=== PATIENT | male | born 1975 | race Caucasian/White ===

== ENCOUNTER 2019-09-06 08:08 | Outpatient (CLI) | payer OTHER, SELFPAY ==
[2019-09-06 09:44] LABS: Alanine Aminotransferase 81 U/L (16-63); Albumin Level 4.1 g/dL (3.4-5.0); Alkaline Phosphatase 105 U/L (46-116); Anion Gap 16.4 mmol/L (7-16); Aspartate Amino Transferase 37 U/L (15-37); Bilirubin,Total 0.5 mg/dL (0.00-1.00); Blood Urea Nitrogen 17 mg/dL (7-18); Calcium 8.7 mg/dL (8.5-10.1); Carbon Dioxide 25 mmol/L (21-32); Chloride 105 mmol/L (98-108); Cholesterol 235 mg/dL (0-200); Estimated Glomerular Filt Rate > 60; Glucose 108 mg/dL (70-99); HDL Direct 28 mg/dL (40-60); Osmolality Calculated 296 mOsm/kg (285-295); Potassium 4.4 mmol/L (3.5-5.1); Sodium 142 mmol/L (136-145); Total Protein 7.5 g/dL (6.4-8.2)
[2019-09-06 09:57] LABS: LDL Cholesterol Calculated 100 mg/dL (<130); LDL Cholesterol Direct 101 mg/dL (0-130); Triglycerides 533 mg/dL (0-150)
== END 2019-09-06 08:09 | disposition home or self-care (01) ==
LOC: CHSLAB 08:13
PROVIDERS: Visit Provider Internal Medicine Cardiovascular Disease
DX: E78.5 Hyperlipidemia, unspecified (principal)
CPT/HCPCS: 36415; 80053; 80061; 83721

== ENCOUNTER 2020-10-21 14:06 | Outpatient (CLI) | payer OTHER, SELFPAY ==
[2020-10-21 14:17] LABS: Hematocrit 44.4 % (40.0-54.0); Hemoglobin 15.7 g/dL (14.0-18.0); Mean Corpuscular HGB Conc 35.4 g/dL (32.0-36.0); Mean Corpuscular Hemoglobin 29.6 pg (27.0-31.0); Mean Corpuscular Volume 83.8 fL (78.0-102.0); Mean Platelet Volume 8.9 fl (8.7-11.0); Platelet Count Result 176 K/mm3 (150-420); Red Cell Distribution Width 11.9 % (11.6-14.4); White Blood Count 4.5 K/mm3 (4.8-10.8)
[2020-10-21 15:35] LABS: Alanine Aminotransferase 96 U/L (16-63); Albumin Level 4.2 g/dL (3.4-5.0); Alkaline Phosphatase 114 U/L (46-116); Anion Gap 10 mmol/L (8-16); Aspartate Amino Transferase 42 U/L (15-37); Bilirubin,Total 0.8 mg/dL (0.00-1.00); Blood Urea Nitrogen 16 mg/dL (7-18); Calcium 9.1 mg/dL (8.5-10.1); Carbon Dioxide 28 mmol/L (21-32); Chloride 100 mmol/L (98-108); Cholesterol 224 mg/dL (0-200); Estimated Glomerular Filt Rate > 60; Glucose 88 mg/dL (70-99); HDL Direct 31 mg/dL (40-60); LDL Cholesterol Calculated 109 mg/dL (<130); Osmolality Calculated 286 mOsm/kg (285-295); Potassium 4.1 mmol/L (3.5-5.1); Sodium 138 mmol/L (136-145); Total Protein 7.6 g/dL (6.4-8.2); Triglycerides 422 mg/dL (0-150)
[2020-10-21 15:40] LABS: LDL Cholesterol Direct 116 mg/dL (0-130)
[2020-10-23 20:30] LABS: H pylori, Urea Breath NOT DETECTED (NOT DETECTED)
== END 2020-10-21 14:07 | disposition home or self-care (01) ==
PROVIDERS: PCP Family Medicine; Visit Provider Family Medicine
DX: J45.909 Unspecified asthma, uncomplicated (principal); K21.9 Gastro-esophageal reflux disease without esophagitis
CPT/HCPCS: 36415; 80053; 80061; 83013; 83721; 85027

== ENCOUNTER 2021-02-04 00:07 | Emergency (ER) | payer OTHER, SELFPAY ==
--- NOTE | ~2021-02-04 | XR_ITS ---
EXAMINATION: XR hip LT 2V w AP pelvis DATE: 02/04/2021 03:59 INDICATION: Pelvis injury. TECHNIQUE: An anteroposterior view of the pelvis and 3 views of left hip were obtained. COMPARISON: None. FINDINGS: Bone alignment is normal. No fracture. There is mild osteoarthritis of the hips. Surgical c lips and miriam overlie the pelvis. IMPRESSION: 1. Mild osteoarthritis of the hips. Reviewed, dictated and finalized at location A.
[2021-02-04 00:15] VITALS: BP 168/96; PULSE 73; RESP 18; TEMP 36.2; O2SAT 96
--- NOTE | 2021-02-04 00:20 | ED.LOWEXIN ---
HPI - Extremity Injury (Lower) General Chief Complaint: Extremity Injury, Lower Stated Complaint: Hip pain Source: patient and RN notes reviewed Mode of arrival: wheelchair Limitations: no limitations History of Present Illness complaint: hip injury Injury: Left: hip Type of Injury: inversion Place: home Severity: severe Relieving factors: nothing Exacerbating factors: weight bearing and movement Context: fall, walking and other (Slipped on rock stairs) Associated symptoms: unable to bear weight Other symptoms: none Related Data Home Medications Medication Instructions Recorded Confirmed omeprazole 20 mg tablet,delayed 20 mg PO DAILY 10/21/20 02/04/21 release omega-3 fatty acids [Fish Oil] 1,000 mg PO DAILY 02/04/21 02/04/21 Allergies Allergy/AdvReac Type Severity Reaction Status Date / Time Penicillins Allergy Intermediate Unknown Verified 01/22/21 09:17 Review of Systems Review of Systems: All systems reviewed & are unremarkable except as noted in HPI and below PMFSH Past Medical History Medical History Asthma Asthma Dyslipidemia Family history of early CAD Nicotine dependence, cigarettes, in remission Surgical History Surgical History H/O hernia repair History of adenoidectomy Hx of tonsillectomy Family History Family History Father History of heart attack Grandparent Lung cancer Other Diabetes mellitus Social History Social History Years smoked: 2 Smoking status: Former smoker Tobacco type: cigarettes Alcohol intake: current Substance use: never Substance use type: does not use Additional living arrangements comments: , has 3 children Additional occupation/education comments: [employer] Gender identity (if verbalized by the patient): Male Spiritual care concerns: No Exam Const: General: healthy appearing and no acute distress Nutritional Appearance: well nourished Orientation/consciousness: patient oriented x3 HENMT: Head: normal to inspection Ears: external ears normal Face and sinus: normal facial exam Mouth: Yes moist mucous membranes Eyes: General: appearance normal, both eyes and all related structures Conjunctivae: conjunctivae normal Pupils: Equal, round and reactive pupils present EOM: EOMs intact bilaterally Neck: Neck: normal visual inspection Resp: Effort & Inspection: normal respiratory effort Auscultation: clear to auscultation bilaterally Cardio: Rate: regular rate Rhythm: regular rhythm GI: GI Palp: Yes Soft to palpation and No Tenderness to palpation present (GI) Auscultation: normal bowel sounds Back/Spine/Pelvis: Cervical Spine: cervical ROM normal Thoracic/Lumbar Spine: thoraco-lumbar ROM normal Skin: General skin exam: normal color Rashes: no rashes Neuro: General: patient oriented x3, moves all extremities, no meningeal signs and no focal motor deficits Speech: normal speech Extrem: General: normal exam except as noted and other (No pain with palpation over pelvis) Left lower extremity: hip/thigh Details: tenderness Location: of the hip Location: anteromedially (Moderate) and normal ROM Psych: Appearance: grossly normal and well kempt Mental Status: mental status grossly normal Affect: normal affect Attitude: cooperative Thought content: Yes Normal thought content present Course Vital Signs Vital signs: Vital Signs Temperature 36.2 C L 02/04/21 00:15 Pulse Rate 73 02/04/21 00:15 Respiratory Rate 18 02/04/21 00:15 Blood Pressure 168/96 H 02/04/21 00:15 Pulse Oximetry 96 02/04/21 00:15 Temperature 36.2 C L 02/04/21 00:15 Pulse Rate 62 02/04/21 02:30 Respiratory Rate 18 02/04/21 02:30 Blood Pressure 167/96 H 02/04/21 02:30 Pulse Oximetry 97 02/04/21 02:30
[2021-02-04] MEDS: HYDROmorphone HCL INJ (*CRX) 2 MG/ML VIAL 1 MG IM (01:27)
[2021-02-04 02:30] VITALS: BP 167/96; PULSE 62; RESP 18; O2SAT 97
== END 2021-02-04 02:38 | disposition home or self-care (01) ==
PROVIDERS: Emergency Provider Emergency Medicine; PCP Family Medicine
DX: S76.012A Strain of muscle, fascia and tendon of left hip, initial encounter (principal); W01.0XXA Fall on same level from slipping, tripping and stumbling without subsequent striking against object, initial encounter
CPT/HCPCS: 73502; 96372; 99283; J1170

== ENCOUNTER 2022-02-13 15:00 | Outpatient (CLI) | payer OTHER, SELFPAY ==
[2022-02-13 15:12] LABS: Hematocrit 44.5 % (40.0-54.0); Hemoglobin 15.7 g/dL (14.0-18.0); Mean Corpuscular HGB Conc 35.3 g/dL (32.0-36.0); Mean Corpuscular Hemoglobin 30.4 pg (27.0-31.0); Mean Corpuscular Volume 86.1 fL (78.0-102.0); Mean Platelet Volume 8.9 fl (8.7-11.0); Platelet Count Result 219 K/mm3 (150-420); Red Blood Count 5.17 M/mm3 (4.70-6.10); Red Cell Distribution Width 11.6 % (11.6-14.4); White Blood Count 6.1 K/mm3 (4.8-10.8)
[2022-02-13 16:31] LABS: Alanine Aminotransferase 86 U/L (16-63); Albumin Level 4.2 g/dL (3.4-5.0); Alkaline Phosphatase 128 U/L (46-116); Anion Gap 8 mmol/L (8-16); Aspartate Amino Transferase 32 U/L (15-37); Bilirubin,Total 0.5 mg/dL (0.00-1.00); Blood Urea Nitrogen 14 mg/dL (7-18); Calcium 9.3 mg/dL (8.5-10.1); Carbon Dioxide 27 mmol/L (21-32); Chloride 102 mmol/L (98-108); Cholesterol 228 mg/dL (0-200); Estimated Glomerular Filt Rate > 60; Glucose 97 mg/dL (70-99); HDL Direct 27 mg/dL (40-60); Osmolality Calculated 284 mOsm/kg (285-295); Potassium 4.1 mmol/L (3.5-5.1); Sodium 137 mmol/L (136-145); Total Protein 7.3 g/dL (6.4-8.2)
[2022-02-13 16:34] LABS: LDL Cholesterol Calculated 96 mg/dL (<130); Triglycerides 524 mg/dL (0-150)
[2022-02-13 16:35] LABS: LDL Cholesterol Direct 114 mg/dL (0-130)
== END 2022-02-13 15:01 | disposition home or self-care (01) ==
LOC: CHSLAB 15:02
PROVIDERS: PCP Family Medicine; Visit Provider Family Medicine
DX: R74.01 Elevation of levels of liver transaminase levels (principal); E78.5 Hyperlipidemia, unspecified
CPT/HCPCS: 36415; 80053; 80061; 83721; 85027

== ENCOUNTER 2022-02-23 07:11 | Outpatient (CLI) | payer OTHER, SELFPAY ==
--- NOTE | ~2022-02-23 | US_ITS ---
US abdomen limited INDICATION: Elevated liver function tests. PROCEDURE: Realtime right upper abdominal ultrasound. COMPARISON: No prior studies for comparison. FINDINGS: The pancreas is normal without focal mass or pancreatic ductal dilation. ] Liver echotextu re is increased, consistent with fatty infiltration. There is normal directional flow in the portal vein. The gallbladder is normal without stones, gallbladder wall thickening or pericholecystic fluid. Comm on bile duct measures 4 mm. No sonographic Herrera's sign. IMPRESSION: 1: Hepatic steatosis. Reviewed, dictated and finalized at location A. IMPRESSION: 1: Hepatic steatosis.
== END 2022-02-23 07:12 | disposition home or self-care (01) ==
LOC: CHSIMG 07:12
PROVIDERS: PCP Family Medicine; Visit Provider Family Medicine
DX: R74.8 Abnormal levels of other serum enzymes (principal); R74.01 Elevation of levels of liver transaminase levels
CPT/HCPCS: 76705

== ENCOUNTER 2022-11-09 10:05 | Outpatient (CLI) | payer OTHER, SELFPAY | END 2022-11-09 10:06 | disposition home or self-care (01) | LOC: CHSAUDIO 10:07 | PROVIDERS: PCP Family Medicine; Visit Provider Family Medicine | DX: H93.13 Tinnitus, bilateral (principal); H90.3 Sensorineural hearing loss, bilateral | CPT/HCPCS: 92557; 92567 ==

== ENCOUNTER 2023-11-23 13:31 | Outpatient (CLI) | payer OTHER, SELFPAY ==
[2023-11-23 13:49] LABS: Basophils Absolute Auto 0.03 K/mm3 (0.00-0.10); Basophils Percent Auto 0.6 % (0.0-1.0); Eosinophils Absolute Auto 0.09 K/mm3 (0.02-0.50); Eosinophils Percent Auto 1.8 % (1.0-6.0); Hematocrit 44.3 % (40.0-54.0); Hemoglobin 15.3 g/dL (14.0-18.0); Immature Granulocyte Absolute 0.03 K/mm3 (0.00-0.00); Immature Granulocyte Percent A 0.6 % (0.0-0.0); Lymphocytes Absolute Auto 1.22 K/mm3 (1.10-4.50); Lymphocytes Percent Auto 24.2 % (18.0-42.0); Mean Corpuscular HGB Conc 34.5 g/dL (32-36); Mean Corpuscular Hemoglobin 29.7 pg (27.0-31.0); Mean Platelet Volume 9.3 fl (8.7-11.0); Monocytes Absolute Auto 0.37 K/mm3 (0.10-0.90); Monocytes Percent Auto 7.3 % (2.0-11.0); Neutrophils Absolute Auto 3.31 K/mm3 (1.70-7.20); Neutrophils Percent Auto 65.5 % (50.0-70.0); Platelet Count Result 188 K/mm3 (150-420); Red Blood Count 5.15 M/mm3 (4.70-6.10); Red Cell Distribution Width 12.1 % (11.6-14.4); White Blood Count 5.1 K/mm3 (4.8-10.8)
[2023-11-23 14:12] LABS: Alanine Aminotransferase 155 U/L (16-63); Albumin Level 4.2 g/dL (3.4-5.0); Alkaline Phosphatase 112 U/L (46-116); Anion Gap 10 mmol/L (4-12); Aspartate Amino Transferase 283 U/L (15-37); Bilirubin,Total 0.7 mg/dL (0.00-1.00); Blood Urea Nitrogen 17 mg/dL (7-18); Calcium 9.2 mg/dL (8.5-10.1); Carbon Dioxide 28 mmol/L (21-32); Chloride 104 mmol/L (98-108); Cholesterol 183 mg/dL (0-200); Estimated Glomerular Filt Rate > 60; Glucose 133 mg/dL (70-99); HDL Direct 35 mg/dL (40-60); LDL Cholesterol Calculated 74 mg/dL (<130); Osmolality Calculated 297 mOsm/kg (285-295); Potassium 3.9 mmol/L (3.5-5.1); Sodium 142 mmol/L (136-145); Total Protein 7.1 g/dL (6.4-8.2); Triglycerides 372 mg/dL (0-150)
== END 2023-11-23 13:32 | disposition home or self-care (01) ==
LOC: CHSLAB 13:32
PROVIDERS: PCP Family Medicine; Visit Provider Family Medicine
DX: Z00.00 Encounter for general adult medical examination without abnormal findings (principal)
CPT/HCPCS: 36415; 80053; 80061; 85025

== ENCOUNTER 2023-11-30 07:31 | Outpatient (CLI) | payer OTHER, SELFPAY ==
--- NOTE | ~2023-11-30 | US_ITS ---
Limited Abdominal Sonogram: Real-time sonographic imaging of the right upper quadrant was performed. Clinical History: Abnormal transaminase levels Findings: The liver appears mildly echogenic, with no evidence of mass lesion or bile duct dilatatio n. Main portal vein demonstrates normal direction of flow. The gallbladder is well distended, and ramon ears normal with no evidence of gallstone or wall thickening. The common bile duct measures 4 mm. Th e visualized pancreas, aorta, and IVC are unremarkable. Impression: Probable diffuse fatty infiltration of the liver. Reviewed, dictated and finalized at location M. Impression: Probable diffuse fatty infiltration of the liver.
== END 2023-11-30 07:32 | disposition home or self-care (01) ==
LOC: CHSIMG 07:32
PROVIDERS: PCP Family Medicine; Visit Provider Family Medicine
DX: R74.01 Elevation of levels of liver transaminase levels (principal)
CPT/HCPCS: 76705

== ENCOUNTER 2024-02-29 10:42 | Outpatient (CLI) | payer OTHER, SELFPAY ==
[2024-02-29 18:53] LABS: Alanine Aminotransferase 170 U/L (16-63); Alkaline Phosphatase 130 U/L (46-116); Aspartate Amino Transferase 97 U/L (15-37); Bilirubin,Total 0.7 mg/dL (0.00-1.00); Blood Urea Nitrogen 11 mg/dL (7-18); Chloride 102 mmol/L (98-108); Cholesterol 239 mg/dL (0-200); Estimated Glomerular Filt Rate > 60; Glucose 91 mg/dL (70-99); HDL Direct 36 mg/dL (40-60); LDL Cholesterol Calculated 150 mg/dL (<130); Osmolality Calculated 283 mOsm/kg (285-295); Potassium 4.2 mmol/L (3.5-5.1); Sodium 137 mmol/L (136-145); Total Protein 7.4 g/dL (6.4-8.2); Triglycerides 264 mg/dL (0-150); Uric Acid 6.7 mg/dL (3.5-7.2)
[2024-02-29 19:10] LABS: Anion Gap 13 mmol/L (4-12); Carbon Dioxide 22 mmol/L (21-32)
== END 2024-02-29 10:43 | disposition home or self-care (01) ==
LOC: CHSLAB 10:44
PROVIDERS: PCP Family Medicine; Visit Provider Family Medicine
DX: I10 Essential (primary) hypertension (principal)
CPT/HCPCS: 36415; 80053; 80061; 84550

== ENCOUNTER 2024-12-01 12:48 | Outpatient (CLI) | payer OTHER, SELFPAY ==
--- OUTSIDE RECORDS SUMMARY | 2024-12-01 12:51 | XMS_ITS | Data Portability ---
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 Name Role Phone JOHN CAMPOVERDE Primary Care Provider JOHN CAMPOVERDE Referring Provider [phone] Assessment Encounter Date Assessment Date Assessment LastModified by Organization Details LastModified Time 02/08/2024 02/08/2024 Assessment: Mild OSAHS, AHI = 10 PLMD Hypoventilation Plan: The following were reviewed and explained to the patient: primary care/referral note [facility] home sleep study 01/30/24 AHI = 10, supine AHI = 20 General information on sleep disordered breathing, evaluation of sleep disordered breathing, treatment with PAP therapy, and living with PAP therapy were covered. PSG is medically necessary to determine the management of sleep apnea. We discussed with the patient the impact of weight on: Sleep disordered breathing Hypertension Hyperlipidemia BERTRAND We discussed with the patient the benefit of PAP therapy on: Sleep disordered breathing Rhinitis Hypertension BERTRAND Educated the patient on sleep hygiene measures. Relaxing rituals to rest easy, understanding foods with positive and negative impact on sleep, creating a peaceful sleep environment, timing of exercise, using herbal sleep aids, and practicing sleep-friendly meditation were covered. To determine how much sleep is needed, the patient will assess where (s)he falls on the spectrum, examine what lifestyle factors such as work schedules and stress are affecting the quality and quantity of sleep. In general, adults need 7-9 hours of sleep. Educated the patient regarding foods that promote sleep. These include but are not limited to cherries, bananas, toast, oatmeal, and warm milk. Educated the patient regarding foods and drinks to avoid before bedtime. These include but are not limited to aged cheese, chocolate, spicy foods, tomato-based sauces, soy, ginseng tea and processed meat. Advocated influenza vaccination annually and pneumonia vaccination in 2040. Advocated weight loss through diet and exercise. Patient's ideal body weight according to height and gender is up to 205 lbs. Encouraged patient to adjust caloric intake to maintain/achieve ideal body weight, emphasizing on fruits, vegetables, whole grains, and fat-free or low-fat products. These include lean meats, poultry, fish, beans, eggs, and nuts and foods that are low in saturated fats, trans-fats, cholesterol, salt (sodium), and glycemic index. Stressed the importance of regular exercise up to the patient's capacity limits. In this case, we recommend 20 min daily walking, 2 days a week of resistance training. Patient to monitor BP daily and bring records to PCP for further management. Follow-up: 1 week after titration sleep study Not available 02/08/2024 09:12:50 05/30/2024 05/30/2024 Assessment: Mild OSAHS, AHI = 10 Plan: The following were reviewed and explained to the patient: [facility] home sleep study 01/30/24 AHI = 10, supine AHI = 20 [facility] titration sleep study 05/08/24 sleep onset = 11.5 minutes, REM onset = 132.5 minutes, ResMed large AirFit F20 full face mask @ 8 cmH2O, PLMI = 0 Educated the patient on problems and solutions associated with positive airway pressure (PAP) use. Difficulty tolerating pressure, mask leaks, intolerance of interface, nasal congestion, claustrophobic response, dry mouth, and unintentional mask removal during sleep were covered. Patient has intolerance to interface. Patient will loosen mask slightly, ensure mask is situated properly, inspect and replace interface if worn out, use barrier such as moleskin or bandage for irritation at bridge of nose, have a temporary holiday from PAP, resize mask or obtain an oral interface. ResMed Air Sense 11 auto set unit with heated humidifier, supplies and ResMed large AirFit F20 full face mask @ 8 cmH2O ordered. Further titration will be based on clinical response. Provided the patient with a list of local home care stores where positive airway pressure (PAP) units, accoutrement, and services are available. Home care store selection is based on patient's insurance carrier. Patient will setup an appointment with [facility] for supplies and pressure adjustments. A major predictor of success with use of PAP is follow-up with both the respiratory supplier and the treating physician. The respiratory supplier optimally will follow-up within two weeks after starting use while the treating physician optimally will follow-up within 90 days after starting therapy to assess adherence and effectiveness of treatment. The download results can show the treating physician information about adherence to treatment, residual AHI while on treatment and presence of large mask leakage. This information is especially helpful if the patient has residual sleepiness despite treatment. General information on sleep disordered breathing, evaluation of sleep disordered breathing, treatment with PAP therapy, and living with PAP therapy were covered. We discussed with the patient the impact of weight on: Sleep disordered breathing Hypertension Hyperlipidemia BERTRAND We discussed with the patient the benefit of PAP therapy on: Sleep disordered breathing Rhinitis Hypertension BERTRAND Educated the patient on sleep hygiene measures. Relaxing rituals to rest easy, understanding foods with positive and negative impact on sleep, creating a peaceful sleep environment, timing of exercise, using herbal sleep aids, and practicing sleep-friendly meditation were covered. To determine how much sleep is needed, the patient will assess where (s)he falls on the spectrum, examine what lifestyle factors such as work schedules and stress are affecting the quality and quantity of sleep. In general, adults need 7-9 hours of sleep. Educated the patient regarding foods that promote sleep. These include but are not limited to cherries, bananas, toast, oatmeal, and warm milk. Educated the patient regarding foods and drinks to avoid before bedtime. These include but are not limited to aged cheese, chocolate, spicy foods, tomato-based sauces, soy, ginseng tea and processed meat. Advocated influenza vaccination annually and pneumonia vaccination in 2040. Advocated weight loss through diet and exercise. Patient's ideal body weight according to height and gender is up to 205 lbs. Encouraged patient to adjust caloric intake to maintain/achieve ideal body weight, emphasizing on fruits, vegetables, whole grains, and fat-free or low-fat products. These include lean meats, poultry, fish, beans, eggs, and nuts and foods that are low in saturated fats, trans-fats, cholesterol, salt (sodium), and glycemic index. Stressed the importance of regular exercise up to the patient's capacity limits. In this case, we recommend 20 min daily walking, 2 days a week of resistance training. Patient to monitor BP daily and bring records to PCP for further management. Follow-up: 3 months, August 2024 Not available 05/30/2024 11:39:25 09/11/2024 09/11/2024 Assessment: Mild OSAHS, AHI = 10 Plan: The following were reviewed and explained to the patient: [facility] home sleep study 01/30/24 AHI = 10, supine AHI = 20 [facility] titration sleep study 05/08/24 sleep onset = 11.5 minutes, REM onset = 132.5 minutes, ResMed large AirFit F20 full face mask @ 8 cmH2O, PLMI = 0 PAP compliance downloaded and interpreted x 20 minutes. Data reviewed and explained to the patient. Average apnea/hypopnea index (AHI) is 3.0. Patient used PAP > 4 hours 72% of the time. PAP is set at 8 cmH2O. PAP will remain at 8 cmH2O. Oxygen supplementation: none Keep ramp start at 4 cmH2O. Keep ramp duration at 5 minutes. Keep EPR +3 ramp only. Keep humidifier level at automatic mode. Keep tube temperature at automatice mode. Patient is benefiting from PAP therapy. Encouraged patient to maintain PAP use more than 70% of the time. Statement of PAP use and benefits will be sent to the home care store. Educated the patient on problems and solutions associated with positive airway pressure (PAP) use. Difficulty tolerating pressure, mask leaks, intolerance of interface, nasal congestion, claustrophobic response, dry mouth, and unintentional mask removal during sleep were covered. Patient has intolerance to interface. Patient will loosen mask slightly, ensure mask is situated properly, inspect and replace interface if worn out, use barrier such as moleskin or bandage for irritation at bridge of nose, have a temporary holiday from PAP, resize mask or obtain an oral interface. Provided the patient with a list of local home care stores where positive airway pressure (PAP) units, accoutrement, and services are available. Home care store selection is based on patient's insurance carrier. Patient will setup an appointment with [facility] for supplies and pressure adjustments. A major predictor of success with use of PAP is follow-up with both the respiratory supplier and the treating physician. The download results can show the treating physician information about adherence to treatment, residual AHI while on treatment and presence of large mask leakage. This information is especially helpful if the patient has residual sleepiness despite treatment. General information on sleep disordered breathing, evaluation of sleep disordered breathing, treatment with PAP therapy, and living with PAP therapy were covered. We discussed with the patient the impact of weight on: Sleep disordered breathing Hypertension Hyperlipidemia BERTRAND We discussed with the patient the benefit of PAP therapy on: Sleep disordered breathing Rhinitis Hypertension BERTRAND Educated the patient on sleep hygiene measures. Relaxing rituals to rest easy, understanding foods with positive and negative impact on sleep, creating a peaceful sleep environment, timing of exercise, using herbal sleep aids, and practicing sleep-friendly meditation were covered. To determine how much sleep is needed, the patient will assess where (s)he falls on the spectrum, examine what lifestyle factors such as work schedules and stress are affecting the quality and quantity of sleep. In general, adults need 7-9 hours of sleep. Educated the patient regarding foods that promote sleep. These include but are not limited to cherries, bananas, toast, oatmeal, and warm milk. Educated the patient regarding foods and drinks to avoid before bedtime. These include but are not limited to aged cheese, chocolate, spicy foods, tomato-based sauces, soy, ginseng tea and processed meat. Advocated influenza vaccination annually and pneumonia vaccination in 2040. Advocated weight loss through diet and exercise. Patient's ideal body weight according to height and gender is up to 205 lbs. Encouraged patient to adjust caloric intake to maintain/achieve ideal body weight, emphasizing on fruits, vegetables, whole grains, and fat-free or low-fat products. These include lean meats, poultry, fish, beans, eggs, and nuts and foods that are low in saturated fats, trans-fats, cholesterol, salt (sodium), and glycemic index. Stressed the importance of regular exercise up to the patient's capacity limits. In this case, we recommend 20 min daily walking, 2 days a week of resistance training. Patient to monitor BP daily and bring records to PCP for further management. Follow-up: 1 year, August 2025 [email or web address] Not available 09/11/2024 14:33:35 Plan of Treatment Reminders Order Date Submit Date Provider Last Modified By Organization Details Last Modified Time Details Appointments Follow Up 2025 02:30P Dottie Woodruff MD Not available Not available Not available Lab None recorded. Referral None recorded. Procedures None recorded. Surgeries None recorded. Imaging polysomno gram, titration study - NO AUTH REQUIRED, per [facility] Ref# [id number] 2023 024 [email or web address] [facility], [address], [place], [address], 03/15/2024 15:34:37 Medication Orders None recorded. Patient TargetsNo targets recorded. Patient InstructionsNo instructions recorded. Reason for Referral None Reported. Results Created Date Observation Date Name Description Value Unit Range Abnormal Flag Note LastModifiedBy Organization Detail LastModifiedTime 08/22/19 22 XR, shoul terrance No observ ation record ed. [id number] [id number] [place] [address], [place], [address], 09/24/2022 00:28:21 02/02/20 24 01/30/2024 home sleep study No observ ation record ed. [facility] Not Available 2023 10:41:20 05/29/2005/08/2024 polys omnog vijay , diagn ostic (PROC ) No observ ation record ed. BARCODE Not Available 2023 18:01:06 Result Notes None recorded. 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 Procedures Surgical History Date Name Laterality Status Provider Name and Address Organization Details Recorded Time Hernia Surgery completed Not Available [facility] 09/24/2022 00:25:49 tonsilectomy/ adenoids completed Светлана Love MA [employer] 02/08/2024 08:50:52 Imaging Results Imaging Date Name Status LastModified by Organiz ation Details LastModified Time 08/22/2021 XR, shoulder completed [id number] [id number] [place] [address], [place], [address], 09/24/2022 00:28:21 01/30/2024 home sleep study completed [facility] Information not available 02/02/2024 10:41:20 05/08/2024 polysomnography , diagnostic (PROC) completed [facility] Information not available 05/29/2024 18:01:06 Procedure Notes None recorded. Medical Equipment None Reported. Allergies Allergen ID Allergen Name Allergen Category Reaction Reaction Severity Criticality Documentation Date Start Date Code Code System Note Provider Name and Address Organization Details Recorded Time 54189 Product containin g penicilli n (product) medicatio n Not available Not available Not available 09/24/2022 31891 8001 SNOMED Not Available [facility] 00:28:10 Medications Name Sig Start Date Stop Date Status Note LastModified by Organization Details LastModified Time atorvastatin 40 mg tablet TAKE 1 TABLET BY MOUTH EVERY DAY active Not Available Not Available No t Available clindamycin HCl 300 mg capsule 08/22 completed Not Available Not Available Not Available naltrexone 50 mg tablet TAKE 1 TABLET BY MOUTH EVERY DAY 02/07 completed Not Available Not Available Not Available lisinopril 20 mg tablet TAKE 1 TABLET BY MOUTH EVERY DAY active Not Available Not Available No t Available Medrol (Fahad) 4 mg tablets in a dose pack Take by oral route. 02/07 completed Not Available Not Available Not Available allopurinol 100 mg tablet TAKE 1 TABLET BY MOUTH TWICE A DAY active Not Available Not Available No t Available montelukast 10 mg tablet 02/07 completed Not Available Not Available Not Available colchicine 0.6 mg tablet TAKE 1 TABLET BY MOUTH EVERY DAY NEEDED FOR GOUT FLARE active Not Available Not Available No t Available neomycin-mandy ymyxin-hydro armando 3.5 mg-10,000 unit/mL-1 % ear drops,susp 08/22 completed Not Available Not Available Not Available azithromycin 500 mg tablet 08/22 completed Not Available Not Available Not Available omeprazole 01/28/ 2022 07/16 /2024 completed Not Available Not Available Not Available hydrochlorot hiazide 12.5 mg tablet TAKE 1 TABLET BY MOUTH EVERY MORNING 05/30 completed Not Available Not Available Not Available Vitals Date Recorded Body mass index (BMI) Body height Body weight Provider Name and Address Organization Details Last Updated DateTime 08/22/2021 35.5 kg/m2 185.42 cm 215140.35 g Not Available [facility] 09/24/2022 00:26:04 Date Recorded Body height Provider Name an d Address Organization Details Last Updated DateTime 10/01/2021 185.42 cm Not Available [facility] 00:26:04 Date Recorded Body height Body mass index (BMI) Body weight Body temperature Heart rate Oxygen saturation Oxygen saturation in Arterial blood by Pulse oximetry Systolic blood pressure Diastolic blood pressure Provider Name and Address Organization Details Last Updated DateTime 4 187.96 cm 32.5 kg/m2 377471. 87 g 97.7 [degF] 59 /min 97 % 97 % 126 mm[Hg] 78 mm[Hg] Светлана Love MA [employer] 08:45:02 Date Recorded Heart rate Respiratory rate Provider N sanjeev and Address Organization Details Last Updated DateTime 02/08/2024 59 /min 15 /min Pete Woodruff MD [address], [address], [address] [employer] 02/08/2024 08:53:44 Date Recorded Body height Body mass index (BMI) Body weight Body temperature Heart rate Oxygen saturation Oxygen saturation in Arterial blood by Pulse oximetry Systolic blood pressure Diastolic blood pressure Provider Name and Address Organization Details Last Updated DateTime 4 187.96 cm 31.6 kg/m2 605779. 72 g 98.7 [degF] 62 /min 95 % 95 % 120 mm[Hg] 78 mm[Hg] Brandi Leavitt MA [employer] 4 11:18:10 Date Recorded Heart rate Respiratory rate Provider N sanjeev and Address Organization Details Last Updated DateTime 05/30/2024 62 /min 14 /min Pete Woodruff MD [address], [address], [address], [employer] 05/30/2024 11:39:49 Date Recorded Body height Body mass index (BMI) Body weight Respiratory rate Oxygen saturation Oxygen saturation in Arterial blood by Pulse oximetry Heart rate Heart rate Provider Name and Address Organization Details Last Updated DateTime 187.96 cm 33.2 kg/m2 915593. 99 g 15 /min 95 % 95 % 67 /min 67 /min Pete Woodruff MD [address], [facility] [address], [place], [address], [facility] [employer] 14:25:00 Date Recorded Body temperature Systolic blood pressure Diastolic blood pressure Provider Name and Address Organization Details Last Updated DateTime 09/11/2024 98.2 [degF] 122 mm[Hg] 78 mm[Hg] Brandi Leavitt MA [facility] [employer] 09/11/2024 14:44:07 Social History Question Answer Notes LastModified by Organization Details LastModified Time Tobacco Smoking Status Former Smoker Светлана Love MA null, [facility] [employer] 02/08/2024 08:48:01 What Is Your Level Of Alcohol Consumption? Moderate [id number] Information not available 09/24/2022 What Is Your Level Of Caffeine Consumption? Moderate Information not available 02/08/2024 In The 14 Days Before Symptom Onset, Have You Had Close Contact With A Laboratory-conf irmed COVID-19 While That Case Was Ill? No Information not available 02/08/2024 In The 14 Days Before Symptom Onset, Have You Had Close Contact With A Person Who Is Under Investigation For COVID-19 While That Person Was Ill? No Information not available 02/08/2024 Are You Currently Employed? Yes Information not available 02/08/2024 What Type Of Diet Are You Following? REGULAR Information not available 02/08/2024 Do You Have An Electrostatic Air Filter? 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 Yes PVC Glue And Other Chemicals Information not available 02/08/2024 When Did You Quit Smoking? 16+yearssincelast cigarette Information not available 02/08/2024 Do You Have A Humidifier? No Information not available 02/08/2024 [facility] 02/08/2024 Do You Have Moisture Problems In Your Home? No Information not available 02/08/2024 What Was The Date Of Your Most Recent Tobacco Screening? 02/08/2024 Information not available 02/08/2024 How Many Children Do You Have? 2 Information not available 02/08/2024 Do You Have Any Pets? Yes Outside Information not available 02/08/2024 What Is Your Relationship Status? Information not available 02/08/2024 Do You Use Your Seat Belt Or Car Seat Routinely? Yes Information not available 02/08/2024 Do You Have Smoke And Carbon Monoxide Detectors In Your Home? Yes Information not available 02/08/2024 At What Age Did You Start Smoking Tobacco? 21 Information not available 02/08/2024 Are You Passively Exposed To Smoke? No Information not available 02/08/2024 How Much Tobacco Do You Smoke? 0.5 PPD Information not available 02/08/2024 Do You Feel Stressed (tense, Restless, Nervous, Or Anxious, Or Unable To Sleep At Night)? [id number] Information not available 02/08/2024 Do You Use Any Illicit Or Recreational Drugs? No Information not available 02/08/2024 Do You Use Sunscreen Routinely? No Information not available 02/08/2024 Have You Recently Traveled Abroad? No Information not available 02/08/2024 Do You Have Any Dietary Restrictions? No Information not available 02/08/2024 Do You Or Have You Ever Used Any Other Forms Of Tobacco Or Nicotine? Yes Zyn Information not available 02/08/2024 Sex: Unknown Functional Status Question Answer Note LastModified by Organization D etails LastModified Time What is your exercise level? Moderate Information not available 02/08/2024 Mental Status None recorded. Family History Relationship Description Onset Age of this Age Resolved Age Notes LastModified by Organization Details LastModified Time Father Hypertensive disorder [id number] Not available 09/24/2022 00:25:51 Father Myocardial infarction [email or web address] Not available 01/31 18:50:05 Father Obstructive sleep apnea syndrome [email or web address] Not available 2023 09:05:39 Paternal Grandfather Myocardial infarction [email or web address] Not available 02/07 09:06:01 Maternal Grandmother Squamous cell carcinoma of bronchus [email or web address] Not available 2023 09:06:12 Mother Depressive disorder [email or web address] Not available 2023 09:06:34 Brother Hypertensive disorder [email or web address] Not available 2023 09:06:43 Sister Gastroesopha geal reflux disease [email or web address] Not available 2023 09:06:59 Medical History Condition Response BLINDNESS N KIDNEY STONES N MRSA N CARPAL TUNNEL SYNDROME N LUNG DISEASE/DISORDER N HISTORY OF DRUG ABUSE N COPD N RADIATION / CHEMOTHERAPY N SPORTS INJURY N ANKLE PAIN N BLOOD DISEASES N SCHIZOPHRENIA N SHINGLES N BOWEL PROBLEMS N SHOULDER PAIN N DEPRESSION (INCLUDING POST ) N STROKE/TIA N ULCERS N KNEE PAIN N BENIGN PROSTATIC HYPERPLASIA N OBESITY N GERD/NAUSEA N ANEURYSM N URINARY/BLADDER/KIDNEY PROBLEMS N CORONARY ARTERY DISEASE (CAD) N ADDICTION CONCERNS N USE OF BLOOD THINNERS N SKIN PROBLEMS N EMPHYSEMA N MUSCLE,JOINT OR BONE PROBLEMS N DVT N STOMACH ULCERS N BLOOD CLOTS N USE OF NSAIDS N CONCUSSION OR SPINAL TRAUMA N NEUROPATHY N AIDS/HIV N FRACTURES N ELBOW PAIN N HYPERTENSION N TOURETTE'S N ANXIETY DISORDER N Metal allergy N BLOOD TRANSFUSION N ANEMIA/BLOOD DISORDER N BIPOLAR DISORDER N BRONCHITIS N OSTEOARTHRITIS N TUBERCULOSIS N FOOT PROBLEM N HEART VALVE DISORDERS N ALLERGIES/HAYFEVER N SOFT TISSUE INJURY N INFECTIOUS DISEASE N HEART ARRHYTHMIA N INSOMNIA N RHEUMATOID ARTHRITIS N HIGH CHOLESTEROL / HYPERLIPIDEMIA N EDEMA N CHRONIC PAIN SYNDROME N CAROTID BLOCKAGE N BACK / NECK PROBLEMS N HAVE YOU BEEN HOSPITALIZED OR SEEN IN [facility] ER IN THE PAST YEAR ? N BURSITIS N HERNIATED DISC N DIALYSIS N FIBROMYALGIA N OSTEOPOROSIS N ARTHRITIS N NO SIGNIFICANT PAST MEDICAL HISTORY N PERIPHERAL NEUROPATHY N DIABETES, TYPE N HEARTBURN / REFLUX N HEPATITIS / LIVER DISEASE N GOUT N SLEEP DISORDER N ALZHEIMER'S DISEASE N HERPES N SEIZURES/EPILEPSY N HEADACHES/MIGRAINES N VASCULAR DISEASE N HIP PAIN N Blood Disorder N DIZZINESS N HEAD TRAUMA OR INJURY N HEART DISEASE/HEART PROBLEMS N MULTIPLE SCLEROSIS N CARDIAC ARRHYTHMIA N CANCER: SPECIFY N ANESTHESIA COMPLICATIONS N ATRIAL FIBRILLATION N AUTOIMMUNE DISEASE N Past Encounters Encounter ID Performer Location Encounter Start Date Encounter Closed Date Diagnosis/Indication Diagnosis SNOMED-CT Code Diagnosis ICD10 Code Diagnosis Note [id number] William Valera MD [facility] [place] [address] [facility] [address] [place] [address] 08/22/2021 00:00:00 08/22/2021 10:10:53 [id number] MD CARLOS ALBERTO [facility] [place] [address] [place] [address] 10/01/2021 00:00:00 10/01/2021 09:26:40 [id number] Pete Woodruff MD [facility] [address] 02/08/2024 08:32:45 02/08/2024 09:14:14 Obstructive sleep apnea syndrome 59618628 G47.33 G47.36 G47.61 [id number] Pete Woodruff MD [facility] [address] 05/30/2024 10:59:41 05/30/2024 14:15:32 Obstructive sleep apnea syndrome [id number] G47.33 [id number] Pete Woodruff MD [facility] [address] 09/11/2024 14:00:44 09/11/2024 14:58:05 Obstructive sleep apnea syndrome [id number] G47.33 Health Concerns Section Related Observation LastModified by Organization Detai ls LastModified Time None Recorded Concern Status LastModified by Organization Details LastModified Time None Recorded Advance Directives Directive None Recorded Payers Encounter Date Sequence Insurance Name Policy Number Policy Holguin Covered Member ID Holguin Member ID Guarantor Name 02/08/2024 1 [employer] [facility] BENEFITS PLAN (PPO) Carlos Bojorquez [id number] OI Carlos Bojorquez 05/30/2024 1 [facility] BENEFITS PLAN (PPO) Carlos Bojorquez [id number] RAHEL Bojorquez 09/11/2024 1 [facility] BENEFITS [facility] (O) Carlos Bojorquez [id number] OI Carlos Bojorquez Notes Date Note Type Note Provider Name and Address Organization Details Recorded Time 02/08/2024 text/html Primary care/Ref erring provider: John Campoverde DO During the [facility] home sleep study on 01/30/24, AHI = 10, supine AHI = 20. At home, the patient sleeps from 9 pm to 5:45 am and wakes up with an alarm. Snoring: heavy, since . Snorting: no Choking: no Coughing: no Gasping: yes Gagging: no Sighing: no Witnessed apnea: yes Twitching or jerking of leg(s), arm(s), body, head: yes Teeth grinding: yes Teeth clenching: yes Sleeptalking: no Sleepwalking: no Sleep crying: no Bedwetting: no Tongue/lip/gum/cheek biting: no Sleeping with open mouth: yes Sleep paralysis: no Hypnagogic hallucinations: no Hypnopompic hallucinations: no Vivid dreams: no Difficulty with sleep onset: no Difficulty with sleep maintenance: yes Sleep interruptions: thoughts Patient wakes up with: fatigue, disorientation, cognitive impairment Daytime cataplexy: no Morning hypersomnolence: no Afternoon hypersomnolence: yes Caffeine sources in diet: coffee 3 cups per day Associated medical and psychiatric conditions: Congestive heart failure: no Coronary artery disease: no Myocardial infarction: no Hypertension: yes Stroke: no Bronchial asthma: no Chronic obstructive pulmonary disease: no Depression: no Bipolar disorder: no Anxiety: no Panic disorder: no Posttraumatic stress disorder: no Attention deficit and hyperactivity disorder: no Obsessive Compulsive disorder: no Schizophrenia: no Schizoaffective disorder: no Personality disorder: no Chronic analgesic use: no Chronic sedative/hypnotic use: no EPWORTH SLEEPINESS SCALE (ESS) CHANCE OF DOZING SCORE 0 = would never doze 1 = slight chance of dozing 2 = moderate chance of dozing 3 = high chance of dozing SITUATION AND CHANCE OF DOZING Sitting and reading - 3 Watching television - 3 Sitting inactive in a public place (e.g. a theater or meeting) - 2 As a passenger in a car for an hour without a break - 0 Lying down to rest in the afternoon when circumstances permit - 1 Sitting and talking to someone - 0 Sitting quietly after lunch without alcohol - 1 In a car, while stopped for a few minutes in the traffic - 0 TOTAL SCORE 10 Subjectively, patient has a moderate chance of dozing. Pete Woodruff MD [address] [facility] [address], [place], [address], [place] [facility] [employer] [facility] 02/08/2024 09:14:31 05/30/2024 text/html Primary care/Ref erring provider: Jonh Campoverde, During the [facility] home sleep study on 01/30/24, AHI = 10, supine AHI = 20. During the [facility] titration sleep study on 05/08/24 sleep onset = 11.5 minutes, REM onset = 132.5 minutes, PLMI = 0. The patient uses a ResMed AirSense 11 autoset unit with heated humidification. The patient does not need the ramp to start low and go up slowly on the pressure. There is no xerostomia in a.m. There is no hose/mask condensation with water. The patient wears a [employer]Med large AirFit F20 full face mask without chin strap. There is no claustrophobia, no nostril/nose bridge irritation, no facial rash, no facial numbness, no nosebleeding. The patient feels more refreshed upon waking and daytime alertness is improved. Energy levels are sustained for the remainder of the day. At home, the patient sleeps from 9 pm to 5:45 am and wakes up with an alarm. Snoring: heavy, since .Snorting: noChoking: noCoughing: noGasping: yesGagging: noSighing: noWitnessed apnea: yesTwitching or jerking of leg(s), arm(s), body, head: yesTeeth grinding: yesTeeth clenching: yesSleeptalking: noSleepwalking: noSleep crying: noBedwetting: noTongue/lip/gum/cheek biting: noSleeping with open mouth: yesSleep paralysis: noHypnagogic hallucinations: noHypnopompic hallucinations: noVivid dreams: noDifficulty with sleep onset: noDifficulty with sleep maintenance: yesSleep interruptions: thoughtsPatient wakes up with: fatigue, disorientation, cognitive impairmentDaytime cataplexy: noMorning hypersomnolence: noAfternoon hypersomnolence: yesCaffeine sources in diet: coffee 3 cups per day Associated medical and psychiatric conditions:Congestive heart failure: noCoronary artery disease: noMyocardial infarction: noHypertension: yesStroke: noBronchial asthma: noChronic obstructive pulmonary disease: noDepression: noBipolar disorder: noAnxiety: noPanic disorder: noPosttraumatic stress disorder: noAttention deficit and hyperactivity disorder: noObsessive Compulsive disorder: noSchizophrenia: noSchizoaffective disorder: noPersonality disorder: noChronic analgesic use: noChronic sedative/hypnotic use: no EPWORTH SLEEPINESS SCALE (ESS) CHANCE OF DOZING SCORE0 = would never doze1 = slight chance of dozing2 = moderate chance of dozing3 = high chance of dozing SITUATION AND CHANCE OF DOZINGSitting and reading - 1Watching television - 1Sitting inactive in a public place (e.g. a theater or meeting) - 2As a passenger in a car for an hour without a break - 0Lying down to rest in the afternoon when circumstances permit - 2Sitting and talking to someone - 0Sitting quietly after lunch without alcohol - 2In a car, while stopped for a few minutes in the traffic - 0TOTAL SCORE 8Subjectively, patient has a moderate chance of dozing. Pete Woodruff MD [address] [place] [address], [phone], [facility] [employer] 05/30/2024 11:51:21 09/11/2024 text/html Primary care/Ref erring provider: John Campoverde DO During the [facility] home sleep study on 01/30/24, AHI = 10, supine AHI = 20. During the [facility] titration sleep study on 05/08/24 sleep onset = 11.5 minutes, REM onset = 132.5 minutes, PLMI = 0. The patient uses a ResMed AirSense 11 autoset unit with heated humidification. The patient does not need the ramp to start low and go up slowly on the pressure. There is no xerostomia in a.m. There is no hose/mask condensation with water. The patient wears a ResMed medium AirFit F20 full face mask without chin strap. There is no claustrophobia, no nostril/nose bridge irritation, no facial rash, no facial numbness, no nosebleeding. The patient feels more refreshed upon waking and daytime alertness is improved. Energy levels are sustained for the remainder of the day. At home, the patient sleeps from 9 pm to 5:45 am and wakes up with an alarm. Snoring: heavy, since .Snorting: noChoking: noCoughing: noGasping: yesGagging: noSighing: noWitnessed apnea: yesTwitching or jerking of leg(s), arm(s), body, head: yesTeeth grinding: yesTeeth clenching: yesSleeptalking: noSleepwalking: noSleep crying: noBedwetting: noTongue/lip/gum/cheek biting: noSleeping with open mouth: yesSleep paralysis: noHypnagogic hallucinations: noHypnopompic hallucinations: noVivid dreams: noDifficulty with sleep onset: noDifficulty with sleep maintenance: yesSleep interruptions: thoughtsPatient wakes up with: fatigue, disorientation, cognitive impairmentDaytime cataplexy: noMorning hypersomnolence: noAfternoon hypersomnolence: yesCaffeine sources in diet: coffee 3 cups per day Associated medical and psychiatric conditions:Congestive heart failure: noCoronary artery disease: noMyocardial infarction: noHypertension: yesStroke: noBronchial asthma: noChronic obstructive pulmonary disease: noDepression: noBipolar disorder: noAnxiety: noPanic disorder: noPosttraumatic stress disorder: noAttention deficit and hyperactivity disorder: noObsessive Compulsive disorder: noSchizophrenia: noSchizoaffective disorder: noPersonality disorder: noChronic analgesic use: noChronic sedative/hypnotic use: no EPWORTH SLEEPINESS SCALE (ESS) CHANCE OF DOZING SCORE0 = would never doze1 = slight chance of dozing2 = moderate chance of dozing3 = high chance of dozing SITUATION AND CHANCE OF DOZINGSitting and reading - 2Watching television - 1Sitting inactive in a public place (e.g. a theater or meeting) - 1As a passenger in a car for an hour without a break - 1Lying down to rest in the afternoon when circumstances permit - 2Sitting and talking to someone - 1Sitting quietly after lunch without alcohol - 2In a car, while stopped for a few minutes in the traffic - 0TOTAL SCORE 10Subjectively, patient has a moderate chance of dozing. Pete Woodruff MD [address] [facility] [facility] [address], [place], [address], [place] [facility] [place] [facility] 09/11/2024 14:53:20
[2024-12-01 13:20] LABS: Basophils Absolute Auto 0.04 K/mm3 (0.00-0.10); Basophils Percent Auto 0.7 % (0.0-1.0); Eosinophils Absolute Auto 0.12 K/mm3 (0.02-0.50); Eosinophils Percent Auto 2.1 % (1.0-6.0); Hematocrit 44.9 % (40.0-54.0); Hemoglobin 15.3 g/dL (14.0-18.0); Immature Granulocyte Absolute 0.03 K/mm3 (0.00-0.00); Immature Granulocyte Percent A 0.5 % (0.0-0.0); Lymphocytes Absolute Auto 1.61 K/mm3 (1.10-4.50); Mean Corpuscular HGB Conc 34.1 g/dL (32-36); Mean Corpuscular Hemoglobin 29.3 pg (27.0-31.0); Mean Corpuscular Volume 85.9 fL (78.0-102.0); Mean Platelet Volume 8.6 fl (8.7-11.0); Monocytes Absolute Auto 0.59 K/mm3 (0.10-0.90); Monocytes Percent Auto 10.3 % (2.0-11.0); Neutrophils Absolute Auto 3.36 K/mm3 (1.70-7.20); Neutrophils Percent Auto 58.4 % (50.0-70.0); Platelet Count Result 166 K/mm3 (150-420); Red Blood Count 5.23 M/mm3 (4.70-6.10); Red Cell Distribution Width 11.8 % (11.6-14.4); White Blood Count 5.8 K/mm3 (4.8-10.8)
[2024-12-01 13:49] LABS: Alanine Aminotransferase 88 U/L (6-50); Albumin Level 4.7 g/dL (3.5-5.1); Alkaline Phosphatase 107 U/L (38-126); Anion Gap 7 mmol/L (4-12); Aspartate Amino Transferase 76 U/L (17-59); Bilirubin,Total 1.1 mg/dL (0.2-1.3); Blood Urea Nitrogen 15 mg/dL (9-20); Calcium 9.4 mg/dL (8.4-10.2); Carbon Dioxide 24 mmol/L (22-30); Chloride 105 mmol/L (98-107); Cholesterol 176 mg/dL (0-200); Estimated Glomerular Filt Rate > 60; Glucose 84 mg/dL (65-110); HDL Direct 32 mg/dL; LDL Cholesterol Calculated 99 mg/dL (<130); Osmolality Calculated 281 mOsm/kg (285-295); Potassium 4.3 mmol/L (3.4-5.0); Sodium 136 mmol/L (137-145); Total Protein 7.2 g/dL (6.3-8.2); Triglycerides 223 mg/dL (<150)
[2024-12-04 15:59] LABS: ANA Cascade Screen POSITIVE (NEGATIVE); Chromatin (Nucleosomal) Ab <1.0 NEG AI (<1.0 NEG); Chromatin Antibody Charge YES; DNA (ds) Antibody Charge YES; JO1 Antibody Charge YES; Jo-1 Antibody <1.0 NEG AI (<1.0 NEG); RNP Antibody <1.0 NEG AI (<1.0 NEG); RNP Antibody Charge YES; SCL70 Antibody Charge YES; SSA Antibody Charge YES; SSB Antibody Charge YES; Sjogren's Antibody (SS-B) 1.1 POS AI (<1.0 NEG); Sm Antibody <1.0 NEG AI (<1.0 NEG); Sm Antibody Charge YES; Sm/RNP Antibody <1.0 NEG AI (<1.0 NEG); Sm/RNP Antibody Charge YES
[2024-12-05 01:43] LABS: Hepatitis A Antibody IgM NON-REACTIVE (NON-REACTIVE); Hepatitis B Core Antibody NON-REACTIVE (NON-REACTIVE)
[2024-12-07 07:29] LABS: Hepatitis B Surface Antigen NON-REACTIVE (NON-REACTIVE); Hepatitis C Virus Antibody NON-REACTIVE (NON-REACTIVE)
== END 2024-12-01 12:49 | disposition home or self-care (01) ==
LOC: CHSLAB 12:49
PROVIDERS: PCP Family Medicine; Visit Provider Family Medicine
DX: I10 Essential (primary) hypertension (principal); M79.641 Pain in right hand; M79.642 Pain in left hand; R74.01 Elevation of levels of liver transaminase levels
CPT/HCPCS: 36415; 80053; 80061; 80074; 85025; 86038; 86225; 86235; 86364

== ENCOUNTER 2025-01-11 09:08 | Outpatient (RCR) | payer OTHER, SELFPAY ==
--- NOTE | 2025-01-11 10:05 | OPREHPOC ---
Outpatient Therapy Plan of Care This is a Multidisciplinary Plan of Care that may contain components documented by all disciplines (PT, OT, and ST.) PT Problem 1 PT Problem #1 Knowledge Deficit PT Goal 1 Goal / Goal Update independent and compliant with HEP Target Visit 5 PT Problem 2 PT Problem #2 Pain PT Goal 1 Goal / Goal Update patient to report no more than 2/10 pain in the anterior L hip in the last week Target Visit 10 PT Problem 3 PT Problem #3 Impaired Strength PT Goal 1 Goal / Goal Update 5/5 bilateral hip strength overall 5/5 illiopsoas strength bilat Target Visit 10 PT Problem 4 PT Problem #4 Impaired Flexibility PT Goal 1 Goal / Goal Update 15 degrees or less bilateral hamstrings tightness per the 90/90 test patient to display no hip flexor or piriformis mm tightness Target Visit 10 PT Problem 5 PT Problem #5 Impaired Functional Mobility PT Goal 1 Goal / Goal Update LEFS to display less than 20% functional deficits patient to return to golf without pain patient to tolerate work and other ADL's without pain in the L anterior hip Target Visit 10
--- NOTE | 2025-01-11 10:06 | PTOPEVAL1 ---
Assessment and note entered by JT File, PT Evaluation Information Assessment Status Evaluation ICD-10 Condition Codes (PT) Pain in left hip M25.552 Onset 01/01/25 Subjective Information patient reports the front of his L hip has been bothering him for a while off and on. he reports now it is constant and not going away. he reports he also has pain down the back of his leg into his calf. he reports he has increased pain with golfing and squats. he also reports standing for increased time increases his pain. he reports he also does a lot of flexing activities to loosen up . he reports it does make it feel better. he reports he had an xray of the L hip back in 2020 that showed mild OA. he reports he has not had any other imaging. Reported Pain Level Pain Score 0: Self Report Assessment PT Clinical Summary mr. love is a 49 yo man who presents to skilled PT for evaluation and treatment of anterior L hip pain. he presents with signs and symptoms consistent with a tendonitis of the L hip flexors. he displays weakened hip strength, mm tightness, and tenderness to palpation over the area. continued skilled PT is indicated to improve his objective/functional deficits and return to his prior level functional activity performance/ quality of life. Plan of Care Interventions Electrical Stimulation,Gait Training,Hot Pack/Cold Pack,Manual Therapy,Neuro Re-education,Patient/ Caregiver Education,Therapeutic Activities, Therapeutic Exercise PT Services Indicated Yes Treatment Frequency and 2x weekly for 10 visits Duration These treatments will address the objective and functional deficits as defined above. The patient will be advanced safely and appropriately in order for the patient to progress towards his/her prior level of function. Additional exercises will be introduced and as well as a comprehensive home exercise program upon discharge, if needed, ?to ensure carryover of functional gains achieved in the clinic. This treatment plan has been reviewed and agreement upon by the patient.
--- NOTE | 2025-01-22 16:56 | PCPTNOTE ---
Patient called & cancelled scheduled appointment this date.
--- NOTE | 2025-03-13 15:00 | PCPTNOTE ---
patient discharged due to not attending follow up visit
== END 2025-01-15 20:00 | disposition home or self-care (01) ==
LOC: CHSPT 09:08
PROVIDERS: PCP Family Medicine; Visit Provider Family Medicine
DX: M25.552 Pain in left hip (principal)
CPT/HCPCS: 97110; 97140; 97161

== ENCOUNTER 2025-01-31 07:11 | Outpatient (CLI) | payer OTHER, SELFPAY ==
--- OUTSIDE RECORDS SUMMARY | 2025-01-31 07:14 | XMS_ITS | Data Portability ---
Author Organization [place] [facility] [employer], Main Office Address [address] [place] [address] Care Team Providers Care [employer] Patrol Police Officer Name Role Phone JOHN CAMPOVERDE Primary Care Provider JOHN CAMPOVERDE Referring Provider [phone] Assessment Encounter Date Assessment Date Assessment LastModified by Organization Details LastModified Time 02/08/2024 02/08/2024 Assessment: Mild OSAHS, AHI = 10 PLMD Hypoventilation Plan: The following were reviewed and explained to the patient: primary care/referral note [facility] home sleep study 01/30/24 AHI = 10, [...] were reviewed and explained to the patient: [facility] home sleep study 01/30/24 AHI = 10, supine AHI = 20 [facility] titration sleep study 05/08/24 sleep onset = [...] carrier. Patient will setup an appointment with [facility] for supplies and pressure adjustments. [...] were reviewed and explained to the patient: [facility] home sleep study 01/30/24 AHI = 10, supine AHI = 20 [facility] titration sleep study 05/08/24 sleep onset = [...] carrier. Patient will setup an appointment with [facility] for supplies and pressure adjustments. [...] further management. Follow-up: 1 year, August 2025 [facility]5 Not available 09/11/2024 14:33:35 Plan of Treatment Reminders Order Date Submit Date Provider Last Modified By Organization Details Last Modified Time Details Appointments Follow Up 2025 02:30P Dottie Woodruff MD Not available Not available Not available Lab None recorded. Referral None recorded. Procedures None recorded. Surgeries None recorded. Imaging polysomno gram, titration study - NO AUTH REQUIRED, per [facility] k Ref# [id number] 2023 024 [email or web address] [facility], [address], [place], [address], 03/15/2024 15:34:37 Medication Orders None recorded. Patient TargetsNo targets recorded. Patient InstructionsNo instructions recorded. Reason for Referral None Reported. Results Created Date Observation Date Name Description Value Unit Range Abnormal Flag Note LastModifiedBy Organization Detail LastModifiedTime 08/22/19 22 XR, shoul terrance No observ ation record ed. [id number] [address], [place], [address], 09/24/2022 00:28:21 02/02/20 24 01/30/2024 home sleep study No observ ation record ed. BARCODE Not Available 2023 10:41:20 05/29/20 24 05/08/2024 polys omnog vijay , diagn ostic (PROC ) No observ ation record ed. BARCODE Not Available 2023 18:01:06 Result Notes None recorded. 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 Procedures Surgical History Date Name Laterality Status Provider Name and Address Organization Details Recorded Time Hernia Surgery completed Not Available [facility] 09/24/2022 00:25:49 tonsilectomy/ adenoids completed Светлана Love MA [email or web address] 02/08/2024 08:50:52 Imaging Results None recorded. Procedure Notes None recorded. Medical Equipment None Reported. Allergies Allergen ID Allergen Name Allergen Category Reaction Reaction Severity Criticality Documentation Date Start Date Code Code System Note Provider Name and Address Organization Details Recorded Time 80265 Product containin g penicilli n (product) medicatio n Not available Not available Not available 09/24/2022 18910 8001 SNOMED Not Available [facility] 00:28:10 Medications Name Sig Start Date Stop [...] Not Available Not Available Not Available omeprazole 02/07 completed Not Available Not Available Not Available hydrochlorot hiazide 12.5 mg tablet TAKE 1 TABLET BY MOUTH EVERY MORNING 05/30 completed Not Available Not Available Not Available Vitals Date Recorded Body mass index (BMI) Body height Body weight Provider Name and Address Organization Details Last Updated DateTime 08/22/2021 35.5 kg/m2 185.42 cm 526362.35 g Not Available [facility] 09/24/2022 00:26:04 Date Recorded Body height Body mass index (BMI) Body weight Respiratory rate Oxygen saturation Oxygen saturation in Arterial blood by Pulse oximetry Heart rate Heart rate Provider Name and Address Organization Details Last Updated DateTime 5 187.96 cm 33.2 kg/m2 602984. 99 g 15 /min 95 % 95 % 67 /min 67 /min Pete Woodruff MD [address], [place], [address], [place] [employer] 5 14:25:00 Date Recorded Body temperature Systolic And Diastolic Provider Name and Address Organization Details Last Updated DateTime 09/11/2024 98.2 [degF] 122/78 mm[Hg] Brandi Leavitt MA [email or web address] 09/11/2024 14:44:07 Date Recorded Body height Provider Name an d Address Organization Details Last Updated DateTime 10/01/2021 185.42 cm Not Available [facility] 3 00:26:04 Date Recorded Heart rate Respiratory rate Provider N sanjeev and Address Organization Details Last Updated DateTime 02/08/2024 59 /min 15 /min Pete Woodruff MD [address], [place], [address], [email or web address] 02/08/2024 08:53:44 Date Recorded Body height Body mass index (BMI) Body weight Body temperature Heart rate Oxygen saturation Oxygen saturation in Arterial blood by Pulse oximetry Systolic And Diastolic Provider Name and Address Organization Details Last Updated DateTime 4 187.96 cm 32.5 kg/m2 662858. 87 g 97.7 [degF] 59 /min 97 % 97 % 126/78 mm[Hg] Светлана Love MA [email or web address] 4 08:45:02 Date Recorded Heart rate Respiratory rate Provider N sanjeev and Address Organization Details Last Updated DateTime 05/30/2024 62 /min 14 /min Pete Woodruff MD [address], [address], [place], [address], [email or web address] 05/30/2024 11:39:49 Date Recorded Body height Body mass index (BMI) Body weight Body temperature Heart rate Oxygen saturation Oxygen saturation in Arterial blood by Pulse oximetry Systolic And Diastolic Provider Name and Address Organization Details Last Updated DateTime 4 187.96 cm 31.6 kg/m2 755784. 72 g 98.7 [degF] 62 /min 95 % 95 % 120/78 mm[Hg] Brandi Leavitt MA [facility] [employer] 11:18:10 Social History Question Answer Notes LastModified by Organizat ion Details LastModified Time Tobacco Smoking Status Former Smoker Светлана Love MA null, [facility] [employer] [facility] 02/08/2024 08:48:01 What Is Your Level Of Caffeine Consumption? Moderate Information not available 02/08/2024 In The 14 Days Before Symptom Onset, Have You Had Close Contact With A Laboratory-confi rmed COVID-19 While That Case Was Ill? No Information not available 02/08/2024 In The 14 Days Before Symptom Onset, Have You Had Close Contact With A Person Who Is Under Investigation For COVID-19 While That Person Was Ill? No Information not available 02/08/2024 What Type Of Diet Are You Following? REGULAR Information not available 02/08/2024 Do You Have An Electrostatic Air Filter? No Information not available 02/08/2024 When Did You Quit Smoking? 16+yearssincelastc igarette Information not available 02/08/2024 Do You Have A Humidifier? No Information not available 02/08/2024 Where Do You Live? [facility] Information not available 02/08/2024 Do You Have [...] PPD Information not available 02/08/2024 Do You Use Sunscreen Routinely? No Information not available 02/08/2024 Have You Recently Traveled Abroad? No Information not available 02/08/2024 Do You Have Any Dietary Restrictions? No Information not available 02/08/2024 Sex: Unknown Functional Status Question Answer Note LastModified by Organizat ion Details LastModified Time Do you use any illicit or recreational drugs? No Information not available 02/08/2024 Do you or have you ever used any other forms of tobacco or nicotine? Yes Zyn Information not available 02/08/2024 What is your level of alcohol consumption? Moderate [id number] 2014 Information not available 09/24/2022 Are you currently employed? Yes Information not available 02/08/2024 Have you been exposed to chemicals or toxins? 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 Moderate Information not available 02/08/2024 Mental Status Question Answer Note LastModified by Organization D etails LastModified Time Do you feel stressed (tense, restless, nervous, or anxious, or unable to sleep at night)? [id number] Information not available 02/08/2024 Family History Relationship Description Onset Age of this Age Resolved Age Notes LastModified by Organization Details LastModified Time Father Hypertensive disorder [id number] Not available 09/24/2022 00:25:51 Father Myocardial infarction [email or web address] Not available 01/31 18:50:05 Father Obstructive sleep apnea syndrome [email or web address] Not available 2023 09:05:39 Paternal Grandfather Myocardial infarction [email or web address] Not available 02/07 09:06:01 Maternal Grandmother Squamous cell carcinoma of bronchus [email or web address] Not available 2023 09:06:12 Mother Depressive disorder [email or web address] Not available 2023 09:06:34 Brother Hypertensive disorder [email or web address] Not available 2023 09:06:43 Sister Gastroesopha geal reflux disease [email or web address] Not available 2023 09:06:59 Medical History Condition Response BLINDNESS N KIDNEY STONES N MRSA N CARPAL TUNNEL SYNDROME N LUNG DISEASE/DISORDER N HISTORY OF DRUG ABUSE N RADIATION / CHEMOTHERAPY N COPD N SPORTS INJURY N ANKLE PAIN N BLOOD DISEASES N SCHIZOPHRENIA N SHINGLES N SHOULDER PAIN N DEPRESSION (INCLUDING POST ) N BOWEL PROBLEMS N STROKE/TIA N ULCERS N KNEE PAIN [...] N NEUROPATHY N AIDS/HIV N FRACTURES N HYPERTENSION N ELBOW PAIN N TOURETTE'S N Metal allergy N ANXIETY DISORDER N BLOOD TRANSFUSION N ANEMIA/BLOOD DISORDER N BIPOLAR DISORDER N BRONCHITIS N OSTEOARTHRITIS N TUBERCULOSIS N FOOT PROBLEM N HEART VALVE DISORDERS N ALLERGIES/HAYFEVER N SOFT TISSUE INJURY N INFECTIOUS DISEASE N HEART ARRHYTHMIA N INSOMNIA N HIGH CHOLESTEROL / HYPERLIPIDEMIA N RHEUMATOID ARTHRITIS N EDEMA N CHRONIC PAIN SYNDROME N CAROTID BLOCKAGE N BACK / NECK PROBLEMS N HAVE YOU BEEN HOSPITALIZED OR SEEN IN [facility] IN THE PAST YEAR ? N BURSITIS N HERNIATED DISC N DIALYSIS N FIBROMYALGIA N OSTEOPOROSIS N ARTHRITIS N NO SIGNIFICANT PAST MEDICAL HISTORY N PERIPHERAL NEUROPATHY N DIABETES, TYPE N HEARTBURN / REFLUX N HEPATITIS / LIVER DISEASE N GOUT N ALZHEIMER'S DISEASE N SLEEP DISORDER N HERPES N HEADACHES/MIGRAINES N SEIZURES/EPILEPSY N VASCULAR DISEASE N Blood Disorder N HIP PAIN N DIZZINESS N HEAD TRAUMA OR INJURY N HEART DISEASE/HEART PROBLEMS N MULTIPLE SCLEROSIS N CANCER: SPECIFY N CARDIAC ARRHYTHMIA N ANESTHESIA COMPLICATIONS N ATRIAL FIBRILLATION N AUTOIMMUNE DISEASE N Past Encounters Encounter ID Performer Location Encounter Start Date Encounter Closed Date Diagnosis/Indication Diagnosis SNOMED-CT Code Diagnosis ICD10 Code Diagnosis Note [id number] William Valera MD [facility] [address] [place] [address] 08/22/2021 00:00:00 08/22/2021 10:10:53 [id number] William Valera MD [facility] [address] [place] [address] 10/01/2021 00:00:00 10/01/2021 09:26:40 [id number] Pete Woodruff MD [facility] [address] [address] 02/08/2024 08:32:45 02/08/2024 09:14:14 Obstructive sleep apnea syndrome 60367688 G47.33 G47.36 G47.61 [id number] Pete Woodruff MD [facility] [address] 05/30/2024 10:59:41 05/30/2024 14:15:32 Obstructive sleep apnea syndrome 41181944 G47.33 [id number] Pete Wood[address] [facility] [address] [address] 09/11/2024 14:00:44 09/11/2024 14:58:05 Obstructive sleep apnea syndrome 15281682 G47.33 Health Concerns Section Related Observation LastModified by Organization Detai ls LastModified Time None Recorded Concern Status LastModified by Organization Details LastModified Time None Recorded Advance Directives Directive None Recorded Payers Insurance Date Sequence Insurance Name Policy Number Policy Holguin Covered Member ID Holguin Member ID Guarantor Name 03/08/2024 1 UNSPECIFIED REMIT PAYOR Carlos Bojorquez 09/18/2024 1 [facility] (PPO) Carlos Bojorquez [id number] Carlos Bojorquez Notes Date Note Type Note Provider Name and Address Organization Details Recorded Time 02/08/2024 text/html Primary care/Ref erring provider: John Campoverde DO During the [facility] home sleep study on 01/30/24, AHI = [...] moderate chance of dozing. Pete Woodruff MD [address] [place] [address], [phone], [facility] [employer] 02/08/2024 09:14:31 05/30/2024 text/html Primary care/Ref erring provider: John Campoverde, DO During the [facility] home sleep study on 01/30/24, AHI = 10, supine AHI = 20. During the [facility] titration sleep study on 05/08/24 sleep onset [...] moderate chance of dozing. Pete Woodruff MD [address] [place] [address], [address], [address], [place] [facility] [employer] 05/30/2024 11:51:21 09/11/2024 text/html Primary care/Ref erring provider: John Campoverde DO During the [facility] home sleep study on 01/30/24, AHI = 10, supine AHI = 20. During the [facility] titration sleep study on 05/08/24 sleep onset [...] moderate chance of dozing. Pete Woodruff MD [address] [place] [address], [facility] [address], [place], [address], [facility] [employer] [facility] 09/11/2024 14:53:20
[2025-01-31 07:25] LABS: Hematocrit 45.0 % (40.0-54.0); Hemoglobin 15.5 g/dL (14.0-18.0); Mean Corpuscular HGB Conc 34.4 g/dL (32-36); Mean Corpuscular Hemoglobin 29.6 pg (27.0-31.0); Mean Corpuscular Volume 86.0 fL (78.0-102.0); Platelet Count Result 199 K/mm3 (150-420); Red Blood Count 5.23 M/mm3 (4.70-6.10); White Blood Count 4.8 K/mm3 (4.8-10.8)
[2025-01-31 07:48] LABS: INR 0.9; Prothrombin Time 10.5 Seconds (9.50-12.1)
[2025-01-31 07:58] LABS: Alanine Aminotransferase 72 U/L (6-50); Albumin Level 4.4 g/dL (3.5-5.1); Alkaline Phosphatase 83 U/L (38-126); Anion Gap 8 mmol/L (4-12); Aspartate Amino Transferase 47 U/L (17-59); Bilirubin,Total 0.8 mg/dL (0.2-1.3); Blood Urea Nitrogen 13 mg/dL (9-20); Calcium 9.1 mg/dL (8.4-10.2); Carbon Dioxide 23 mmol/L (22-30); Chloride 108 mmol/L (98-107); Estimated Glomerular Filt Rate > 60; Glucose 95 mg/dL (65-110); Iron 79 ug/dL (49-181); Osmolality Calculated 288 mOsm/kg (285-295); Potassium 4.4 mmol/L (3.4-5.0); Sodium 139 mmol/L (137-145); Total Protein 6.8 g/dL (6.3-8.2)
[2025-01-31 08:09] LABS: Percent Iron Saturation 22 % (20-50)
[2025-01-31 08:15] LABS: Hemoglobin A1C 5.2 % (<5.7)
[2025-01-31 08:29] LABS: Thyroid Stimulating Hormone Reflex 1.720 uIU/mL (0.465-4.68)
[2025-01-31 08:33] LABS: Ferritin 134.00 ng/mL (17.9-464)
[2025-02-01 07:09] LABS: Immunoglobulin G, Qn 958 mg/dL (603-1613)
== END 2025-01-31 07:12 | disposition home or self-care (01) ==
LOC: CHSLAB 07:12
PROVIDERS: PCP Family Medicine; Visit Provider Nurse Practitioner
DX: R74.01 Elevation of levels of liver transaminase levels (principal); K74.60 Unspecified cirrhosis of liver
CPT/HCPCS: 36415; 80053; 80074; 82103; 82105; 82390; 82728; 82784; 83036; 83520; 83540; 83550; 84443; 85027; 85610; 86015; 86038; 86376